=== PATIENT | female | born 1935 | race Caucasian/White ===

== ENCOUNTER 2023-10-10 19:15 | Emergency (ER) | payer MEDICARE ==
--- NOTE | 2023-10-10 19:30 | ED ---
Fall HPI - General Source: patient, family, RN notes reviewed <Evelyn Berry - Last Filed: 10/10/23 19:28> - General Source: patient, family, RN notes reviewed Mode of arrival: ambulatory Limitations: no limitations - History of Present Illness MD Complaint: fall <Marilyn Wynne - Last Filed: 10/11/23 02:08> - General Chief Complaint: Fall Stated Complaint: Fall-Head lac,R wrist injury Time Seen by Provider: 10/10/23 19:28 - History of Present Illness Initial Comments: Patient is an 88 old female presented ER with a chief complaint of a fall. Patient states she was opening her trunk of her car when she fell. Patient hit the back of her head and reports a laceration. Denies LOC, blood thinners, nausea/vomiting/double or blurred vision. Patient also reports reporting right and ankle pain. Patient denies any other injuries. (Evelyn Berry) This is an 88-year-old female who presents to the emergency department for a fall. States that she she was trying to open the trunk of her car, when she lost her balance and fell backwards, hitting the back of her head. She did also brace herself with her left wrist and reports some pain to this area, which has since started to improve. Denies any loss of consciousness and she is not taking any blood thinners. She does have some minor pain along her tailbone, but states that this is related to being on the ground for a few extra minutes and trying to get herself up. Her daughter notes that she seems to have a cut on the back of her head as well, as there is a lot of bleeding coming from this. Patient is not sure when her last tetanus vaccine was. (Marilyn Wynne) - Related Data Allergies Allergy/AdvReac Type Severity Reaction Status Date / Time No Known Allergies Allergy Verified 10/10/23 20:37 Review of Systems ROS Other: All systems not noted in ROS Statement are negative. <Evelyn Berry - Last Filed: 10/10/23 19:28> ROS Other: All systems not noted in ROS Statement are negative. <Marilyn Wynne - Last Filed: 10/11/23 02:08> ROS Statement: Those systems with pertinent positive or pertinent negative responses have been documented in the HPI. General Exam <Evelyn Berry - Last Filed: 10/10/23 19:28> Limitations: no limitations General appearance: alert, in no apparent distress Head exam: Present: other (1 cm laceration over the patient's occiput with minor active bleeding.) Eye exam: Present: normal appearance, PERRL, EOMI. Absent: scleral icterus, conjunctival injection, periorbital swelling Respiratory exam: Present: normal lung sounds bilaterally. Absent: respiratory distress, wheezes, rales, rhonchi, stridor Cardiovascular Exam: Present: regular rate, normal rhythm, normal heart sounds. Absent: systolic murmur, diastolic murmur, rubs, gallop, clicks Extremities exam: Present: other (Ecchymosis over the volar aspect of the left wrist. No tenderness. Full range of motion. 2+ radial pulses.) Neurological exam: Present: alert, oriented X3, CN II-XII intact Psychiatric exam: Present: normal affect, normal mood <Marilyn Wynne - Last Filed: 10/11/23 02:08> - General Exam Comments Initial Comments: Visual Physical Exam Vital signs reviewed General: Well-appearing, nontoxic, no acute distress. Head: Normocephalic, atraumatic 1-2 cm laceration noted on posterior scalp. No active bleeding. Eyes: PERRLA, EOMI ENT: Airway patent Chest: Nonlabored breathing Skin: No visual rash, normal skin tone Neuro: Alert and oriented 3 Musculoskeletal: No gross abnormalities (Evelyn Berry) Course Vital Signs 10/10/23 10/10/23 20:35 23:54 Temperature 97.6 F Pulse Rate 84 78 Respiratory 18 16 Rate Blood Pressure 166/84 160/83 O2 Sat by Pulse 95 94 L Oximetry Procedures - Laceration Laceration #1 Consent Obtained: verbal consent Indication: laceration Site: scalp Size (cm): 1 Description: linear Depth: simple, single layer Type of Sutures: other (Jian) Number of Sutures: 1 <Marilyn Wynne - Last Filed: 10/11/23 02:08> Medical Decision Making <Evelyn Berry - Last Filed: 10/10/23 19:28> - Radiology Data Radiology results: report reviewed, image reviewed <Marilyn Wynne - Last Filed: 10/11/23 02:08> - Medical Decision Making I performed the quick note portion of the exam. Electronically signed by Evelyn Berry PA-C (Evelyn Berry) This is an 88-year-old female who presents to the emergency department for a fall. Was pt. sent in by a medical professional or institution? @ -No Did you speak to anyone other than the patient for history? @ -Her daughter provided the information about the bleeding. Did you review nursing and triage notes? @ -Yes, and I agree, it is accurate with regards to the patient's symptoms. Were old charts reviewed? @ -No Differential Diagnosis? @ -Differential Diagnosis Head Injury: Contusion, hematoma, intracranial hemorrhage, skull fracture, whiplash, concussion, this is not meant to be an all-inclusive list. EKG interpreted by me (3pts min.)? @ -Not obtained X-rays interpreted by me (1pt min.)? @ -X-ray of the left wrist obtained. My interpretation identifies no acute fractures. CT interpreted by me (1pt min.)? @ -Computed tomography scan of the brain and c-spine obtained. My interpretation identifies no evidence of an acute intracranial hemorrhage, skull fracture, or cervical spine fracture. U/S interpreted by me (1pt. min.)? @ -Not obtained What testing was considered but not performed? (CT, X-rays, U/S, labs)? Why? @ -None What meds were considered but not given? Why? @ -None Did you discuss the management of the patient with other professionals? @ -No Did you reconcile home meds? @ -No Was smoking cessation discussed for >3mins.? @ -No Was critical care preformed (if so, how long)? @ -No Were there social determinants of health that impacted care today? How? (Homelessness, low income, unemployed, alcoholism, drug addiction, transportation, low edu. Level, literacy, decrease access to med. care, half-way, rehab)? @ -No Was there de-escalation of care discussed even if they declined? (Discuss DNR or withdrawal of care, Hospice)? @ -No What co-morbidities impacted this encounter? (DM, HTN, Smoking, COPD, CAD, Cancer, CVA, Hep., AIDS, mental health diagnosis, sleep apnea, morbid obesity)? @ -None Was patient admitted / discharged? @ -Discharged. Computed tomography scan of the brain and C-spine obtained revealing no acute process. X-ray of the left wrist obtained revealing widening of the scapholunate interspace which can be seen with with disruption of the scapholunate ligament. There is also a deformity at the distal radius that may represent a sequela of an older, nonacute fracture. Patient maintained full range of motion of the left wrist and denied having any significant pain to this area. She declined a thumb spica splint or any sort bandage. Discussed that she can use [id number] Ken bandages or wear a wrist brace as well. Her head was cleansed with hydrogen peroxide and one staple was used to close the laceration. Tetanus vaccine was updated. Advised ibuprofen and Tylenol as needed for pain relief. She is also instructed to return in 10-14 days for staple removal. She was given information for follow-up with orthopedic hand specialists with regards to the x-ray findings of the left wrist. Undiagnosed new problem with uncertain prognosis? @ -None Drug Therapy requiring intensive monitoring for toxicity (Heparin, Nitro, Insulin, Cardizem)? @ -None Were any procedures done? @ -[place] on the head Diagnosis/symptom? @ -Fall, head injury, left wrist sprain Acute, or Chronic, or Acute on Chronic? @ -Acute Uncomplicated (without systemic symptoms) or Complicated (systemic symptoms)? @ -Uncomplicated Side effects of treatment? @ -None Exacerbation, Progression, or Severe Exacerbation] @ -Not applicable Poses a threat to life or bodily function? @ -No Return precautions reviewed in depth, the patient is instructed to return to the emergency department with any new, worsening, or concerning symptoms. Patient verbalized understanding. This case was discussed in detail with the attending ED physician, Dr. Wood. Presentation, findings, and treatment plan discussed in detail as well. (Marilyn Wynne) Disposition <Evelyn Berry - Last Filed: 10/10/23 19:28> Is patient prescribed a controlled substance at d/c from ED?: No <Marilyn Wynne - Last Filed: 10/11/23 02:08> Clinical Impression: Fall, Scalp laceration, Left wrist sprain Disposition: HOME SELF-CARE Condition: Stable Instructions (If sedation given, give patient instructions): Fall Prevention for Older Adults (ED), Staple Care (ED) Additional Instructions: Return to the emergency department with any new, worsening, or concerning symptoms and in 10-14 days for removal of the staple. Alternate with ibuprofen every 8 hours and Tylenol every 6 hours as needed for pain relief. You can also apply ice to the wrist for 10-15 minutes every 2-3 hours for the first 2-3 days followed by heat afterwards. If needed, you can use an Ken bandage or an [id number] wrist brace. If you continue to have pain in the wrist or hand, contact the hand specialist as listed below for a follow-up appointment. Follow up with your primary care provider in 1-2 days. Referrals: None,Stated [Primary Care Provider] - 1-2 days Dannielle White DO [Doctor of Osteopathic Medicine] - 1-2 days
[2023-10-10 20:43] VITALS: TEMP 97.6
--- NOTE | 2023-10-10 22:22 | XR ---
EXAMINATION TYPE: XR wrist complete LT DATE OF EXAM: 10/10/2023 7:57 PM CLINICAL INDICATION:Female, 88 years old with history of injury; [facility] COMPARISON: None. TECHNIQUE: 4 views of the left wrist. FINDINGS: Generalized decrease in bone mineralization. There is deformity of the distal radius without discrete fracture lucency seen, this may be reflective of a remote injury. There is mild positive ulnar varia nce and moderate degenerative change at the distal radioulnar joint. Mild degenerative changes throug hout the carpal rows. There is widening of the scapholunate interspace, integrity of the scapholunate ligament is in question. There is moderate degenerative change of the basal joint of the thumb with some lateral subluxation of the base of the first metacarpal. Soft tissues are grossly unremarkable. IMPRESSION: 1. Generalized osteopenia and degenerative changes. 2. Widening of the scapholunate interspace can be seen with disruption of the scapholunate ligament. 3. Deformity of the distal radius may represent sequela of nonacute fracture. Follow-up as clinicall y warranted.
--- NOTE | 2023-10-10 22:37 | CT ---
EXAMINATION TYPE: CT brain cspine wo con CT DLP: 1271.8 mGycm, Automated exposure control for dose reduction was used. DATE OF EXAM: 10/10/2023 8:07 PM COMPARISON: None. CLINICAL INDICATION:Female, 88 years old with history of pain; Fall, posterior head laceration TECHNIQUE: Brain: Multiple axial CT images of the brain were obtained without IV contrast. Cspine: Axial CT images from the skull base to the inferior aspect of T2 we obtained without intraven ous contrast. Coronal and sagittal reformatted images were also reviewed. FINDINGS: Brain: Extra-axial spaces: No abnormal extra-axial fluid collections. Ventricular system: Appear dilated in proportion to the degree of cerebral atrophy. Cerebral parenchyma: No increased attenuation to suggest acute intraparenchymal hemorrhage. The gra y-white matter interface appears maintained. Moderate generalized brain atrophy. Scattered hypoatte nuating areas are seen within the cerebral white matter, nonspecific but most often seen with chronic microvascular ischemic changes; mild in degree. Cerebellum: No acute abnormality. Mass effect: No evidence of mass effect or midline shift. Intracranial vasculature: Atherosclerotic calcifications of the larger arteries near the skull base. Soft tissues: Moderate sized subgaleal scalp hematoma posteriorly near the midline overlying the marah etal lobes. Visualized orbits: Orbital contents appear grossly intact. Bilateral aphakia Calvarium/osseous structures: No evidence of calvarial fracture. Paranasal sinuses and mastoid air cells: Mild scattered paranasal sinus disease. Mastoid air cells a ppear hypopneumatized. MRI is more sensitive for detecting acute processes such as infarct, and may be considered if clinica lly warranted. Cervical spine: Fracture: None seen. Osseous structures, spinal canal/neural foramina: Generalized osteopenia. 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 There is mild to moderate multilevel degenerative disc disease, m ost pronounced at the C3-C4 level. Generally mild facet arthrosis throughout. At C2-C3, there is no s ignificant spinal canal or neural foraminal stenosis seen. At C3-C4, there is moderate canal and bila teral neural foraminal stenosis primarily due to disc endplate osteophytes as well as trace retrolist hesis C3 on C4. At C4-C5, there is moderate right and mild left neural foraminal stenosis. Mild/moder ate canal stenosis. At C5-C6, there is mild to moderate canal stenosis and moderate left and mild to moderate right neural foraminal stenosis. At C6-C7, there is minimal canal and mild right neural fora bob narrowing. At C7-T1, there is no significant spinal canal or neural foraminal stenosis seen. Vertebral alignment: No traumatic malalignment. Preserved normal cervical lordosis. Mild retrolisthes is C3 on C4. Neck soft tissues: No acute finding.. Calcifications noted involving the cervical carotid arteries mo stly in the bifurcation regions, and along aortic arch. Other: Lung apices show no acute infiltrate or pneumothorax. Mild scarring/senescent changes. IMPRESSION: CT head: No CT evidence of an acute intracranial abnormality. Atrophy and chronic microvascular ischemic white matter changes. CT cervical spine: No evidence of cervical spine fracture or traumatic malalignment. Mild/moderate cervical spondylosis, as described.
[2023-10-10] MEDS ORDERED: DIPH,PERTUS(ACELL)TETVAC-LF 0.5 ML VIAL IM ONE (23:00)
[2023-10-10] MEDS ORDERED: ACETAMINOPHEN TAB 325 MG TAB PO STA (23:17)
[2023-10-10] MEDS ORDERED: IBUPROFEN 600 MG TAB PO STA (23:17)
[2023-10-11 00:34] VITALS: BP 160/83; PULSE 78; RESP 16
== END 2023-10-11 00:05 | disposition home or self-care (01) ==
LOC: EC 19:15
DX: S01.01XA Laceration without foreign body of scalp, initial encounter (principal); S63.502A Unspecified sprain of left wrist, initial encounter; Z23 Encounter for immunization; W01.110A Fall on same level from slipping, tripping and stumbling with subsequent striking against sharp glass, initial encounter
CPT/HCPCS: 12001; 70450; 72125; 90471; 90715; 99284

== ENCOUNTER 2025-01-15 17:44 | Inpatient (IN) | payer MEDICARE ==
[2025-01-15 18:30] LABS: Basophils # (A) 0.1 k/uL (0-0.2); Basophils % (A) 1 %; Eosinophils % (A) 1 %; HCT 40.2 % (34.0-46.0); HGB 12.8 gm/dL (11.4-16.0); Lymphocytes # (A) 0.8 k/uL (1.0-4.8); Lymphocytes % (A) 12 %; MCHC 31.7 g/dL (31.0-37.0); MCV 88.3 fL (80.0-100.0); Mean Platelet Volume 7.2; Monocytes # (A) 0.4 k/uL (0-1.0); Monocytes % (A) 6 %; Neutrophils # (A) 5.7 k/uL (1.3-7.7); Neutrophils % (A) 80 %; Platelet Count 280 k/uL (150-450); RBC 4.55 m/uL (3.80-5.40); RDW 13.8 % (11.5-15.5); WBC 7.1 k/uL (3.8-10.6)
[2025-01-15 18:45] LABS: ALT 15 U/L (4-34); AST 30 U/L (14-36); African American GFR (CKD) >90 (>60 ml/min/1.73 sqM); Albumin 3.8 g/dL (3.5-5.0); Alkaline Phosphatase 70 U/L (38-126); Anion Gap 7 mmol/L; Blood Urea Nitrogen 29 mg/dL (7-17); Calcium 8.6 mg/dL (8.4-10.2); Carbon Dioxide 31 mmol/L (22-30); Chloride 101 mmol/L (98-107); Glucose 133 mg/dL (74-99); Non-African American GFR(CKD) 80 (>60 ml/min/1.73 sqM); Potassium 3.5 mmol/L (3.5-5.1); Sodium 139 mmol/L (137-145); Total Bilirubin 1.4 mg/dL (0.2-1.3); Total Protein 6.7 g/dL (6.3-8.2)
[2025-01-15 18:49] LABS: NT-Pro-B-Type Natriuretic Pept 637 pg/mL
--- NOTE | 2025-01-15 18:55 | XR ---
EXAMINATION TYPE: XR chest 2V DATE OF EXAM: 01/15/2025 6:49 PM COMPARISON: None TECHNIQUE: XR chest 2V Frontal and lateral views of the chest. CLINICAL INDICATION:Female, 89 years old with history of difficulty breathing; FINDINGS: Lungs/Pleura: There is no evidence of pleural effusion, focal consolidation, or pneumothorax. Elevat ion left hemidiaphragm with gas-filled colon beneath. Pulmonary vascularity: Unremarkable. Heart/mediastinum: Cardiomediastinal silhouette is enlarged. Musculoskeletal: No acute osseous pathology. IMPRESSION: 1. No acute cardiopulmonary disease/process. 2. Elevated left hemidiaphragm with gas-filled colon beneath. [facility], , 01/15/2025 6:52 PM
[2025-01-15 19:06] LABS: Influenza A Detected (Not Detectd); Influenza B Not Detected (Not Detectd); RSV Not Detected (Not Detectd)
[2025-01-15] MEDS ORDERED: NALOXONE 0.4 MG/ML 1 ML VIAL IV PRN (19:55)
--- NOTE | 2025-01-15 19:55 | ED ---
SOB HPI - General Chief Complaint: Shortness of Breath Stated Complaint: TRINITY Time Seen by Provider: 01/15/25 17:55 Source: patient Mode of arrival: EMS Limitations: no limitations - History of Present Illness Initial Comments: 89-year-old female with no reported past medical history who presents emergency department from urgent care. Patient went in there because she has reported a cough for the past 5 to 6 days. They found the patient to be 80% on room air. Denies history of asthma or COPD. Does not wear oxygen at home. She have a lo w-grade temp. They placed patient on oxygen and called EMS to transfer her to the hospital. Patient denies a productive cough. No chest pain. No history of heart failure. Denies any sick contacts. No lower extremity edema. No calf pain or swelling. Denies any nausea or vomiting. No abdominal pain. No changes in her bowel or bladder habits. No other alleviating, precipitating or modifying factors - Related Data Previous Rx's Medication Instructions Recorded Acetaminophen Tab [Tylenol] 650 mg PO Q6HR PRN tab 01/17/25 Albuterol Inhaler [Ventolin Hfa 2 puff INHALATION Q6H PRN #1 each 01/17/25 Inhaler] Oseltamivir [Tamiflu] 30 mg PO BID #6 cap 01/17/25 Pantoprazole [Protonix] 40 mg PO AC-BRKFST #30 tab 01/17/25 predniSONE [Deltasone] 40 mg PO DAILY #8 tab 01/17/25 Allergies Allergy/AdvReac Type Severity Reaction Status Date / Time No Known Allergies Allergy Verified 01/15/25 19:40 Review of Systems ROS Statement: Those systems with pertinent positive or pertinent negative responses have been documented in the HPI. ROS Other: All systems not noted in ROS Statement are negative. Past Medical History Past Medical History: No Reported History History of Any Multi-Drug Resistant Organisms: None Reported Past Surgical History: No Surgical Hx Reported Past Psychological History: No Psychological Hx Reported Smoking Status: Never smoker Past Alcohol Use History: None Reported Past Drug Use History: None Reported General Exam Limitations: no limitations General appearance: alert, in no apparent distress Head exam: Present: atraumatic, normocephalic, normal inspection Eye exam: Present: normal appearance, PERRL, EOMI. Absent: scleral icterus, conjunctival injection, periorbital swelling ENT exam: Present: normal exam, mucous membranes moist Neck exam: Present: normal inspection. Absent: tenderness, meningismus, lymphadenopathy Respiratory exam: Present: rales, other (Conversational dyspnea). Absent: respiratory distress, wheezes, rhonchi, stridor Cardiovascular Exam: Present: regular rate, normal rhythm, normal heart sounds. Absent: systolic murmur, diastolic murmur, rubs, gallop, clicks GI/Abdominal exam: Present: soft, normal bowel sounds. Absent: distended, tenderness, guarding, rebound, rigid Extremities exam: Present: normal inspection, full ROM, normal capillary refill. Absent: tenderness, pedal edema, joint swelling, calf tenderness Back exam: Present: normal inspection Neurological exam: Present: alert, oriented X3, CN II-XII intact Psychiatric exam: Present: normal affect, normal mood Skin exam: Present: warm, dry, intact, normal color. Absent: rash Course Vital Signs 01/15/25 01/15/25 01/15/25 17:49 17:57 18:00 Temperature 99.5 F Pulse Rate 85 Respiratory 22 24 Rate Blood Pressure 129/70 O2 Sat by Pulse 80 L 93 L Oximetry 01/15/25 01/15/25 01/15/25 18:40 20:17 20:25 Temperature Pulse Rate 79 78 75 Respiratory 20 22 Rate Blood Pressure 117/72 118/74 O2 Sat by Pulse 93 L 92 L Oximetry 01/15/25 01/15/25 20:34 20:48 Temperature Pulse Rate 78 80 Respiratory 17 Rate Blood Pressure O2 Sat by Pulse 93 L Oximetry Medical Decision Making - Medical Decision Making Was pt. sent in by a medical professional or institution (DEVIKA Hawkins, ASSEMBLER CAMPER, urgent care, hospital, or [facility]...) When possible be specific @ -Patient sent in from urgent care Did you speak to anyone other than the patient for history (EMS, parent, family, police, friend...)? What history was obtained from this source @ -Spoke with EMS and daughter for history Did you review nursing and triage notes (agree or disagree)? Why? @ -I reviewed and agree with nursing and triage notes Were old charts reviewed (outside hosp., previous admission, EMS record, old EKG, old radiological studies, urgent care reports/EKG's, [facility] records)? Report findings @ -I reviewed the urgent care note Differential Diagnosis (chest pain, altered mental status, abdominal pain women, abdominal pain men, vaginal bleeding, weakness, fever, dyspnea, syncope, headache, dizziness, GI bleed, back pain, seizure, CVA, palpatations, mental health, musculoskeletal)? @ -Differential Dyspnea: Coronary syndrome, arrhythmia, tamponade, asthma, COPD, pulmonary embolism, pneumonia, pneumothorax, pulmonary effusion, anaphylaxis, diabetic ketoacidosis, flailed chest, pulmonary contusion, diaphragmatic rupture, anemia, neuromuscular, this is not meant to be an all-inclusive list. EKG interpreted by me (3pts min.). @ -yes and demonstrates sinus rhythm with a rate of 78. DC interval 155. QRS 102. QTc of 398. No acute ST segment elevations or depression X-rays interpreted by me (1pt min.). @ -Yes and demonstrates no acute process CT interpreted by me (1pt min.). @ -None done U/S interpreted by me (1pt. min.). @ -None done What testing was considered but not performed or refused? (CT, X-rays, U/S, labs)? Why? @ -None What meds were considered but not given or refused? Why? @ -None Did you discuss the management of the patient with other professionals (professionals i.e. , PA, ASSEMBLER CAMPER, lab, RT, psych nurse, manager social responsibility, box sorter, teacher, chief growth officer, cyanide case hardener)? Give summary @ -I spoke with Dr. Ramirez for history Was smoking cessation discussed for >3mins.? @ -No Was critical care preformed (if so, how long)? @ -No Were there social determinants of health that impacted care today? How? (Homelessness, low income, unemployed, alcoholism, drug addiction, transportation, low edu. Level, literacy, decrease access to med. care, half-way, rehab)? @ -No Was there de-escalation of care discussed even if they declined (Discuss DNR or withdrawal of care, Hospice)? DNR status @ -No What co-morbidities impacted this encounter? (DM, HTN, Smoking, COPD, CAD, Cancer, CVA, ARF, Chemo, Hep., AIDS, mental health diagnosis, sleep apnea, morbid obesity)? @ -None Was patient admitted / discharged? Hospital course, mention meds given and route, prescriptions, significant lab abnormalities, going to OR and other pertinent info. @ -Upon arrival patient seen and in bed 6. Thorough history and physical exam was performed. We did the oxygen off the patient and she immediately desaturates to 82%. She is placed back on oxygen. IV was established. Laboratory conducted. Viral swab was performed. Chest x-ray demonstrates no acute process. Patient was positive for influenza. Results were discussed with patient. Due to her profound hypoxia I do feel the patient needs to be admitted. Breathing treatments, Solu-Medrol and Tamiflu were ordered. I spoke with Dr. Ramirez for the admission Undiagnosed new problem with uncertain prognosis? @ -No Drug Therapy requiring intensive monitoring for toxicity (Heparin, Nitro, Insulin, Cardizem)? @ -No Were any procedures done? @ -No Diagnosis/symptom? @ -Acute hypoxic respiratory failure, acute influenza A Acute, or Chronic, or Acute on Chronic? @ -Acute Uncomplicated (without systemic symptoms) or Complicated (systemic symptoms)? @ -Complicated Side effects of treatment? @ -No Exacerbation, Progression, or Severe Exacerbation? @ -No Poses a threat to life or bodily function? How? (Chest pain, [place], [place], pneumonia, PE, COPD, DKA, ARF, appy, cholecystitis, CVA, Diverticulitis, Homicidal, Suicidal, threat to staff... and all critical care pts) @ -Yes this patient is hypoxic - Lab Data Result diagrams: 01/16/25 05:12 01/16/25 05:12 Lab Results 01/15/25 01/15/25 01/15/25 Range/Units 18:15 18:15 18:15 WBC 7.1 (3.8-10.6) k/uL RBC 4.55 (3.80-5.40) m/uL Hgb 12.8 (11.4-16.0) gm/dL Hct 40.2 (34.0-46.0) % MCV 88.3 (80.0-100.0) fL MCH 28.0 (25.0-35.0) pg MCHC 31.7 (31.0-37.0) g/dL RDW 13.8 (11.5-15.5) % Plt Count 280 (150-450) k/uL MPV 7.2 Neutrophils % 80 % Lymphocytes % 12 % Monocytes % 6 % Eosinophils % 1 % Basophils % 1 % Neutrophils # 5.7 (1.3-7.7) k/uL Lymphocytes # 0.8 L (1.0-4.8) k/uL Monocytes # 0.4 (0-1.0) k/uL Eosinophils # 0.0 (0-0.7) k/uL Basophils # 0.1 (0-0.2) k/uL Sodium 139 (137-145) mmol/L Potassium 3.5 (3.5-5.1) mmol/L Chloride 101 (98-107) mmol/L Carbon Dioxide 31 H (22-30) mmol/L Anion Gap 7 mmol/L BUN 29 H (7-17) mg/dL Creatinine 0.65 (0.52-1.04) mg/dL Est GFR (CKD-EPI)AfAm >90 (>60 ml/min/1.73 sqM) Est GFR (CKD-EPI)NonAf 80 (>60 ml/min/1.73 sqM) Glucose 133 H (74-99) mg/dL Plasma Lactic Acid Jeferson 1.2 (0.7-2.0) mmol/L Calcium 8.6 (8.4-10.2) mg/dL Total Bilirubin 1.4 H (0.2-1.3) mg/dL AST 30 (14-36) U/L ALT 15 (4-34) U/L Alkaline Phosphatase 70 (38-126) U/L Troponin I (0.000-0.034) ng/mL NT-Pro-B Natriuret Pep 637 pg/mL Total Protein 6.7 (6.3-8.2) g/dL Albumin 3.8 (3.5-5.0) g/dL Influenza Type A (PCR) (Not Detectd) Influenza Type B (PCR) (Not Detectd) RSV (PCR) (Not Detectd) SARS-CoV-2 (PCR) (Not Detectd) 01/15/25 01/15/25 Range/Units 18:15 18:15 WBC (3.8-10.6) k/uL RBC (3.80-5.40) m/uL Hgb (11.4-16.0) gm/dL Hct (34.0-46.0) % MCV (80.0-100.0) fL MCH (25.0-35.0) pg MCHC (31.0-37.0) g/dL RDW (11.5-15.5) % Plt Count (150-450) k/uL MPV Neutrophils % % Lymphocytes % % Monocytes % % Eosinophils % % Basophils % % Neutrophils # (1.3-7.7) k/uL Lymphocytes # (1.0-4.8) k/uL Monocytes # (0-1.0) k/uL Eosinophils # (0-0.7) k/uL Basophils # (0-0.2) k/uL Sodium (137-145) mmol/L Potassium (3.5-5.1) mmol/L Chloride (98-107) mmol/L Carbon Dioxide (22-30) mmol/L Anion Gap mmol/L BUN (7-17) mg/dL Creatinine (0.52-1.04) mg/dL Est GFR (CKD-EPI)AfAm (>60 ml/min/1.73 sqM) Est GFR (CKD-EPI)NonAf (>60 ml/min/1.73 sqM) Glucose (74-99) mg/dL Plasma Lactic Acid Jeferson (0.7-2.0) mmol/L Calcium (8.4-10.2) mg/dL Total Bilirubin (0.2-1.3) mg/dL AST (14-36) U/L ALT (4-34) U/L Alkaline Phosphatase (38-126) U/L Troponin I 0.029 (0.000-0.034) ng/mL NT-Pro-B Natriuret Pep pg/mL Total Protein (6.3-8.2) g/dL Albumin (3.5-5.0) g/dL Influenza Type A (PCR) Detected A (Not Detectd) Influenza Type B (PCR) Not Detected (Not Detectd) RSV (PCR) Not Detected (Not Detectd) SARS-CoV-2 (PCR) Not Detected (Not Detectd) Disposition Clinical Impression: Hypoxia, Influenza A Disposition: ADMITTED IP TO THIS HOSP Condition: Stable Is patient prescribed a controlled substance at d/c from ED?: No Time of Disposition: 19:55 Decision to Admit Reason: Admit from EC Decision Date: 01/15/25 Decision Time: 19:55
[2025-01-15] MEDS: OSELTAMIVIR 75 MG CAP PO SCH (20:05)
[2025-01-15] MEDS: methylPREDNISolone SOD SUCCI 125 MG/2 ML VIAL IV STA (20:10)
[2025-01-15] MEDS: IPRATROPIUM-ALBUTEROL 3 ML NEB INHALATION SCH (20:24)
[2025-01-15] MEDS: IPRATROPIUM-ALBUTEROL 3 ML NEB INHALATION STA (20:25)
[2025-01-15] MEDS ORDERED: IPRATROPIUM-ALBUTEROL 3 ML NEB INHALATION PRN (20:55)
--- NOTE | 2025-01-15 21:34 | P.HPIM ---
History of Present Illness H&P Date: 01/15/25 Chief Complaint: dyspnea Patient is a 89-year-old female with no reported medical history presenting to the ED with shortness of breath. Patient went to urgent care due to nonproductive cough for the past 5 to 6 days. They ultimately found patient oxygen saturation to be 80% on room air. She endorses a mild headache. Denies any sick contacts. Denies any history of as thma or COPD. Denies any tobacco, alcohol, drug history. She denies any fever, chills, chest pain, shortness of breath, nausea, vomiting, diarrhea, abdominal pain, urinary symptoms. CXR displaying no acute cardiopulmonary process T 99.5 F, [place] 85, RR 22, BP 129/70, O2 saturation 80% on room air Cepheid 4-plex detecting Influenza A detected Review of systems: Pertinent positives and negatives as discussed in HPI, a complete review of systems was performed and all other systems are negative. Physical examination: Vital signs reviewed General: Mild distress, appears at stated age Derm: no unusual rashes/lesions, warm Head: atraumatic, normocephalic, symmetric Eyes: EOMI, anicteric sclera ENT: Nose and ears atraumatic Mouth: no lip lesion, mucus membranes moist Cardiovascular: S1S2 reg, no murmur, positive dorsalis pedis pulse bilateral, no edema Lungs: Bilateral rhonchi, rales, no accessory muscle use Abdominal: soft, nontender to palpation, no guarding Ext: muscle strength 5 out of 5 in all 4 extremities grossly, no gross muscle atrophy Neuro: CN II-XI grossly intact, no gross focal neuro deficits Psych: Alert, oriented to person, place, and time Assessment/Plan: Patient is a 89-year-old female with no reported medical history presenting to the ED with shortness of breath. ED documentation reviewed. Discussed with the patient. The patient is admitted with an anticipated greater than than 2 midnight stay for evaluation of acute hypoxic respiratory failure secondary to influenza A virus. #. Acute hypoxic respiratory failure secondary to Influenza A #. Metabolic alkalosis SIRS 1 with increased RR CXR displaying no acute cardiopulmonary process S/p IV Solu-Medrol 125 mg given by ED Patient is never smoker, denies asthma/COPD corticosteroids currently not indicated for this patient Currently on 4 L nasal cannula Tamiflu 30 mg PO BID Duoneb around the clock and prn Encourage oral hydration Pulmonology consulted DVT prophylaxis: Lovenox 40 sq daily CODE STATUS: FULL CODE Anticipated discharge place: pending clinical course Doug Arboleda MD PGY-1 IM Dictation was produced using [employer] dictation software. please excuse any grammatical, word or spelling errors. I have seen and evaluated the patient today. I Discussed the case with the resident and agree with the resident's findings I edited the assessment and plan as necessary as documented in the resident's note. Past Medical History Past Medical History: No Reported History History of Any Multi-Drug Resistant Organisms: None Reported Past Surgical History: No Surgical Hx Reported Past Psychological History: No Psychological Hx Reported Smoking Status: Never smoker Past Alcohol Use History: None Reported Past Drug Use History: None Reported Medications and Allergies Home Medications Medication Instructions Recorded Confirmed Type No Known Home Medications 01/15/25 01/15/25 History Allergies Allergy/AdvReac Type Severity Reaction Status Date / Time No Known Allergies Allergy Verified 01/15/25 19:40 Physical Exam Vitals: Vital Signs Temp Pulse Resp BP Pulse Ox 01/15/25 18:40 79 20 117/72 93 L 01/15/25 18:00 93 L 01/15/25 17:57 24 01/15/25 17:49 99.5 F 85 22 129/70 80 L Intake and Output 01/15/25 01/15/25 01/15/25 06:59 14:59 22:59 Other: Weight 52.39 kg Results CBC & Chem 7: 01/15/25 18:15 01/15/25 18:15 Labs: Abnormal Lab Results - Last 24 Hours (Table) 01/15/25 01/15/25 01/15/25 Range/Units 18:15 18:15 18:15 Lymphocytes # 0.8 L (1.0-4.8) k/uL Carbon Dioxide 31 H (22-30) mmol/L BUN 29 H (7-17) mg/dL Glucose 133 H (74-99) mg/dL Total Bilirubin 1.4 H (0.2-1.3) mg/dL Influenza Type A (PCR) Detected A (Not Detectd)
[2025-01-15] MEDS: ACETAMINOPHEN TAB 325 MG TAB PO PRN (21:50)
[2025-01-16] MEDS: OSELTAMIVIR 30 MG CAP PO SCH (07:51)
[2025-01-16] MEDS: ENOXAPARIN 40 MG/0.4 ML SYRINGE SQ SCH (07:51)
[2025-01-16] MEDS ORDERED: methylPREDNISolone SOD SUCCI 40 MG/ML 1 ML VIAL IV SCH (08:00)
[2025-01-16 08:30] LABS: Calcium 8.8 mg/dL (8.7-10.3); Carbon Dioxide 28.7 mmol/L (21.6-31.8); Chloride 102 mmol/L (96-109); Glucose 147 mg/dL (70-110); Magnesium 2.3 mg/dL (1.5-2.4); Potassium 3.9 mmol/L (3.5-5.5); Sodium 143 mmol/L (135-145)
[2025-01-16 08:48] LABS: HCT 41.5 % (37.2-46.3); HGB 13.1 g/dL (12.0-15.0); MCHC 31.6 g/dL (32.0-37.0); MCV 91.8 FL (80.0-97.0); Mean Platelet Volume 9.8 FL (9.5-12.2); NRBC Per 100 WBC 0 X 10*3/uL (0.00-0.01); Platelet Count 254 X 10*3/uL (140-440); RBC 4.52 X 10*6/uL (4.10-5.20); RDW 13.8 % (11.5-14.5); WBC 4.85 X 10*3/uL (4.50-10.00)
[2025-01-16] MEDS: IPRATROPIUM-ALBUTEROL 3 ML NEB INHALATION PRN (09:55)
[2025-01-16 10:47] LABS: Basophils # (A) 0.01 X 10*3/uL (0.00-0.10); Basophils % (A) 0.2 %; Eosinophils # (A) 0 X 10*3/uL (0.04-0.35); Eosinophils % (A) 0 %; Lymphocytes # (A) 0.61 X 10*3/uL (0.90-5.00); Lymphocytes % (A) 12.6 %; Monocytes # (A) 0.05 X 10*3/uL (0.20-1.00); Neutrophils # (A) 4.17 X 10*3/uL (1.80-7.70); RBC Morphology Normal (Normal)
[2025-01-16] MEDS: methylPREDNISolone SOD SUCCI 40 MG/ML 1 ML VIAL IV SCH (12:19)
--- NOTE | 2025-01-16 13:18 | P.PN ---
Subjective Progress Note Date: 01/16/25 89-year-old female with no reported medical history presenting to the ED with shortness of breath. Patient went to urgent care due to nonproductive cough for the past 5 to 6 days. They ultimately found patient oxygen saturation to be 80% on room air. She endorses a mild headache. Denies any sick contacts. Denies any history of asthma or COPD. Denies any tobacco, alcohol, drug history. In the ED she underwent extensive evaluation. T 99.5 F, [place] 85, RR 22, BP 129/70, O2 saturation 80% on room air. CXR displaying no acute cardiopulmonary process. Cepheid 4-plex detecting Influenza A detected. Lactic acid 1.2. CBC, CMP significant for bicarb 31, BUN 29, glu 133, T. Bili 1.4. BNP 637. Trop 0.029. EKG NSR. Started on Tamiflu and admitted for further workup and management. 01/16 Patient was seen and examined. Feeling better. 89% on RA. CBC, CMP significant for AG 12.3, BUN/Cr 45, glu 147. General: non toxic, no distress, appears at stated age Derm: warm, dry Head: atraumatic, normocephalic, symmetric Mouth: no lip lesion, mucus membranes moist Cardiovascular: S1S2 reg, no murmur Lungs: Expiratory wheezing bilaterally, no rales , no accessory muscle use Ext: no gross muscle atrophy, no edema, no contractures Neuro: no focal neuro deficits Psych: Alert and oriented x 3 Based on my assessment of this patient, this patient meets a high complexity level of care. Acute hypoxic respiratory failure secondary to Flu A: Tamiflu 30 mg PO BID. DuoNeb Q6H scheduled. Supplemental O2 to maintain O2 sat > 92%. Telemetry monitoring. Tylenol 650 mg PO Q6H PRN fever. Obtain D-Dimer. Pulmonary consult. Prerenal azotemia with Hyperbilirubinemia: Encourage hydration by mouth. CODE STATUS: FULL CODE. DVT Prophylaxis: Lovenox SQ. GI Prophylaxis: Protonix PO. Designated medical POA if patient is not able to make medical decisions for themselves: Daughter I have reviewed the following consultant dietitian notes: I have reviewed the results of the following tests: CBC, CMP. I have ordered the following tests: D-Dimer. I have discussed the care of this patient with the following independent historian: RN, Daughter I have independently interpreted the following test below: I have discussed the management of this patient with the following physician: Objective - Vital Signs Vital signs: Vital Signs Temp 97.9 F 01/16/25 07:23 Pulse 82 01/16/25 10:11 Resp 18 01/16/25 07:23 BP 121/79 01/16/25 07:23 Pulse Ox 95 01/16/25 10:01 FiO2 Intake & Output 01/15/25 01/16/25 01/16/25 18:59 06:59 18:59 Weight 52.39 kg 52.39 kg Other: Voiding Method Toilet Toilet # Voids 1 1 - Labs CBC & Chem 7: 01/16/25 05:12 01/16/25 05:12 Labs: Abnormal Lab Results - Last 24 Hours (Table) 01/15/25 01/15/25 01/15/25 Range/Units 18:15 18:15 18:15 MCHC (32.0-37.0) g/dL Lymphocytes # 0.8 L (1.0-4.8) k/uL Monocytes # (0.20-1.00) X 10*3/uL Eosinophils # (0.04-0.35) X 10*3/uL Carbon Dioxide 31 H (22-30) mmol/L Anion Gap (4.00-12.00) mmol/L BUN 29 H (7-17) mg/dL BUN/Creatinine Ratio (12.00-20.00) Ratio Glucose 133 H (74-99) mg/dL Total Bilirubin 1.4 H (0.2-1.3) mg/dL Influenza Type A (PCR) Detected A (Not Detectd) 01/16/25 01/16/25 Range/Units 05:12 05:12 MCHC 31.6 L (32.0-37.0) g/dL Lymphocytes # 0.61 L (1.0-4.8) k/uL Monocytes # 0.05 L (0.20-1.00) X 10*3/uL Eosinophils # 0 L (0.04-0.35) X 10*3/uL Carbon Dioxide (22-30) mmol/L Anion Gap 12.30 H (4.00-12.00) mmol/L BUN (7-17) mg/dL BUN/Creatinine Ratio 45.00 H (12.00-20.00) Ratio Glucose 147 H (74-99) mg/dL Total Bilirubin (0.2-1.3) mg/dL Influenza Type A (PCR) (Not Detectd)
[2025-01-16] MEDS: IPRATROPIUM-ALBUTEROL 3 ML NEB INHALATION SCH (13:43)
[2025-01-16 14:32] VITALS: BMI 18.6
--- NOTE | 2025-01-16 16:52 | P.CNPUL ---
History of Present Illness Consult date: 01/16/25 Reason for consult: hypoxemia History of present illness: This is a pleasant 89-year-old female patient was been having increased cough and congestion for approximately 5 days. She has not received her influenza vaccine for the current year. No reported fever or chills. No significant shortness of breath. No nausea vomiting or diarrhea or abdominal pain. No altered mentation. The [facility] with a pulse ox of around 80% on room air oxygen. She was placed on oxygen and she is currently on 2 L nasal cannula. She also tested positive for influenza A. Based on that, the patient was hospitalized. The patient is extremely hard of hearing. She does not wear any hearing aids. Information was obtained from family members. No history of any chronic lung di sease. No chest pain. No use of home oxygen. She is a lifetime non-smoker. She is hemodynamically stable with a white cell count of 4.8, hemoglobin 13.1 and a platelet count of 254. Sodium is at 143, BUN 27 creatinine of 0.6. Viral screen was positive for influenza A infection. proBNP level was 637. Troponin level was at 0.0 29. Total protein and albumin levels were essentially within normal limits. Calcium level is at 8.8. Lactic acid level is at 1.2. Patient is currently on Tamiflu 30 mg p.o. twice a day. She was started on IV Solu- Medrol. She is on DuoNeb and MRI tubes [id number]. Oxygenation remained stable and the patient continues to desaturate on room air oxygen. Chest x-ray was also reviewed and it shows no acute airspace 0 consolidation. The patient has chronic elevation of left hemidiaphragm with gas-filled bowel under the left hemidiaphragm. Otherwise, no airspace disease or consolidation. No other significant abnormalities noted. Review of Systems Constitutional: Reports fatigue, Reports weakness Eyes: denies as per HPI, denies blurred vision, denies bulging eye, denies decreased vision, denies diplopia, denies discharge, denies dry eye, denies irritation, denies itching, denies pain, denies photophobia, denies loss of peripheral vision, denies loss of vision, denies tunnel vision/blind spots Ears: bilateral: decreased hearing, deny: ear discharge, earache, tinnitus Ears, nose, mouth and throat: Reports as per HPI Breasts: absent: as per HPI, change in shape, gynecomastia, masses, nipple discharge, pain, skin changes, swelling Breasts: Reports as per HPI Cardiovascular: Reports as per HPI Respiratory: Reports congestion, Reports cough Gastrointestinal: Reports as per HPI Genitourinary: Reports as per HPI Menstruation: Reports as per HPI Musculoskeletal: Reports as per HPI Musculoskeletal: absent: ankle pain, ankle stiffness, ankle swelling, as per HPI, elbow pain, elbow stiffness, elbow swelling, foot pain, foot stiffness, foot swelling, hand pain, hand stiffness, hand swelling, hip pain, hip stiffness, hip swelling, knee pain, knee stiffness, knee swelling, shoulder pain, shoulder stiffness, shoulder swelling, wrist pain, wrist stiffness, wrist swelling Integumentary: Reports as per HPI Neurological: Reports as per HPI Psychiatric: Reports as per HPI Endocrine: Reports as per HPI Hematologic/Lymphatic: Reports as per HPI Allergic/Immunologic: Reports as per HPI Past Medical History Past Medical History: No Reported History History of Any Multi-Drug Resistant Organisms: None Reported Past Surgical History: No Surgical Hx Reported Past Anesthesia/Blood Transfusion Reactions: No Reported Reaction Past Psychological History: No Psychological Hx Reported Smoking Status: Never smoker Past Alcohol Use History: None Reported Past Drug Use History: None Reported Medications and Allergies Home Medications Medication Instructions Recorded Confirmed Type No Known Home Medications 01/15/25 01/15/25 History Allergies Allergy/AdvReac Type Severity Reaction Status Date / Time No Known Allergies Allergy Verified 01/15/25 19:40 Physical Exam Vitals: Vital Signs Temp Pulse Pulse Resp BP BP Pulse Ox 01/16/25 10:11 82 01/16/25 10:01 80 95 01/16/25 09:58 71 95 01/16/25 07:23 97.9 F 75 18 121/79 96 01/16/25 01:06 97.6 F 67 16 109/61 95 01/15/25 21:28 98.2 F 83 18 148/75 94 L 01/15/25 20:48 80 17 93 L 01/15/25 20:34 78 01/15/25 20:25 75 01/15/25 20:17 78 22 118/74 92 L 01/15/25 18:40 79 20 117/72 93 L 01/15/25 18:00 93 L 01/15/25 17:57 24 01/15/25 17:49 99.5 F 85 22 129/70 80 L Intake and Output 01/15/25 01/16/25 01/16/25 22:59 06:59 14:59 Other: Voiding Method Toilet Toilet # Voids 1 1 Weight 52.39 kg The patient appeared well nourished and normally developed. Vital signs as documented. BMI is 18.6, currently on 2 L of oxygen by nasal cannula Head exam is unremarkable. No scleral icterus or corneal arcus noted. Neck is without jugular venous distension, thyromegaly, or carotid bruits. Carotid upstrokes are brisk bilaterally. Lungs are clear to auscultation and percussion. Scattered rhonchi heard throughout the lung phelps bilaterally Cardiac exam reveals the PMI to be normally sized and situated. Rhythm is regular. First and second heart sounds normal. No murmurs, rubs or gallops. Abdominal exam reveals normal bowel sounds, no masses, no organomegaly and no a ortic enlargement. Extremities are nonedematous and both femoral and pedal pulses are normal. Examination of the skin revealed no evidence of significant rashes, suspicious appearing nevi or other concerning lesions. Neurologically, the patient is awake and alert and the patient does not have any focal neurological deficit. Cranial nerves are essentially intact. Results - Laboratory Findings CBC and BMP: 01/16/25 05:12 01/16/25 05:12 Abnormal lab findings: Abnormal Labs 01/15/25 01/15/25 01/15/25 18:15 18:15 18:15 MCHC Lymphocytes # 0.8 L Monocytes # Eosinophils # Carbon Dioxide 31 H Anion Gap BUN 29 H BUN/Creatinine Ratio Glucose 133 H Total Bilirubin 1.4 H Influenza Type A (PCR) Detected A 01/16/25 01/16/25 05:12 05:12 MCHC 31.6 L Lymphocytes # 0.61 L Monocytes # 0.05 L Eosinophils # 0 L Carbon Dioxide Anion Gap 12.30 H BUN BUN/Creatinine Ratio 45.00 H Glucose 147 H Total Bilirubin Influenza Type A (PCR) - Diagnostic Findings Chest x-ray: image reviewed Assessment and Plan Plan: Acute influenza A infection. The patient is presenting with symptoms of tracheobronchitis related to influenza A infection. No significant shortness of breath. No hemodynamic instability. 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 twice a day for the next 5 days IV Solu-Medrol IV fluids Russ mariscal [id number] Reevaluated oxygenation with the next 24 hours and the patient should be able to go home once her oxygenation improves Case was discussed with family members Recommend annual vaccination with flu shot Recommend hearing aids Will be glad to follow
[2025-01-17] MEDS ORDERED: IPRATROPIUM-ALBUTEROL 3 ML NEB INHALATION PRN (00:05)
[2025-01-17] MEDS: PANTOPRAZOLE 40 MG TABLET PO SCH (06:30)
[2025-01-17 07:36] VITALS: BP 153/88; RESP 18; TEMP 97.8
[2025-01-17] MEDS: IPRATROPIUM-ALBUTEROL 3 ML NEB INHALATION SCH (09:40)
[2025-01-17 09:54] VITALS: PULSE 71
--- NOTE | 2025-01-17 10:36 | P.DS ---
Providers Date of admission: 01/15/25 20:22 Expected date of discharge: 01/17/25 Attending physician: Marichuy Ramirez MD Consults: 01/15/25 20:01 Consult Physician Urgent Consulting Provider: Kiara Villegas Consult Reason/Comments: hypoxia, influenza a Do you want consulting provider notified?: Yes Primary care physician: Stated None Hospital Course: 89-year-old female with no reported medical history presenting to the ED with shortness of breath. Patient went to urgent care due to nonproductive cough for the past 5 to 6 days. They ultimately found patient oxygen saturation to be 80% on room air. She endorses a mild headache. Denies any sick contacts. Denies any history of asthma or COPD. Denies any tobacco, alcohol, drug history. In the ED she underwent extensive evaluation. T 99.5 F, GA 85, RR 22, BP 129/70, O2 saturation 80% on room air. CXR displaying no acute cardiopulmonary process. Cepheid 4-plex detecting Influenza A detected. Lactic acid 1.2. CBC, CMP significant for bicarb 31, BUN 29, glu 133, T. Bili 1.4. BNP 637. Trop 0.029. EKG NSR. Started on Tamiflu and admitted for further workup and management. 01/16 Patient was seen and examined. Feeling better. 89% on RA. CBC, CMP significant for AG 12.3, BUN/Cr 45, glu 147. 01/17 Patient was seen and examined. Feeling well. Passed home O2 eval today. Wanting to go home. D-Dimer 0.37. Discharge Plan: Prednisone 40 mg PO QD x 4 days. Tamiflu 30 mg PO BID x 6 doses. Albuterol inhaler PRN. Follow up with PCP within 1-[address] Villegas within 1 week of discharge. General: non toxic, no distress, appears at stated age Derm: warm, dry Head: atraumatic, normocephalic, symmetric Mouth: no lip lesion, mucus membranes moist Cardiovascular: S1S2 reg, no murmur Lungs: Decreased BS bilaterally, no rales , no accessory muscle use Ext: no gross muscle atrophy, no edema, no contractures Neuro: no focal neuro deficits Psych: Alert and oriented x 3 Discharge Diagnosis: Acute hypoxic respiratory failure secondary to Flu A Prerenal azotemia with Hyperbilirubinemia This complex discharge took 35 minutes to complete. Patient Condition at Discharge: Stable Plan - Discharge Summary Discharge Rx Participant: Yes New Discharge Prescriptions: New predniSONE [Deltasone] 40 mg PO DAILY #8 tab Pantoprazole [Protonix] 40 mg PO AC-BRKFST #30 tab Albuterol Inhaler [Ventolin Hfa Inhaler] 2 puff INHALATION Q6H PRN #1 each PRN Reason: Shortness Of Breath Or Wheezing Oseltamivir [Tamiflu] 30 mg PO BID #6 cap Acetaminophen Tab [Tylenol] 650 mg PO Q6HR PRN tab PRN Reason: Mild Pain Or Fever > 100.5 Discharge Medication List Acetaminophen Tab [Tylenol] 650 mg PO Q6HR PRN tab 01/17/25 [Rx] Albuterol Inhaler [Ventolin Hfa Inhaler] 2 puff INHALATION Q6H PRN #1 each 01/17/25 [Rx] Oseltamivir [Tamiflu] 30 mg PO BID #6 cap 01/17/25 [Rx] Pantoprazole [Protonix] 40 mg PO AC-BRKFST #30 tab 01/17/25 [Rx] predniSONE [Deltasone] 40 mg PO DAILY #8 tab 01/17/25 [Rx] Follow up Appointment(s)/Referral(s): None,Stated [Primary Care Provider] - 1-2 days Kiara Villegas MD [STAFF PHYSICIAN] - 1 Week Discharge/Stand Alone Forms: Area PCPs Discharge Disposition: HOME SELF-CARE
--- NOTE | 2025-01-17 14:59 | P.PN ---
Subjective Progress Note Date: 01/17/25 This is a pleasant 89-year-old female patient was been having increased cough and congestion for approximately 5 days. She has not received her influenza vaccine for the current year. No reported fever or chills. No significant shortness of breath. No nausea vomiting or diarrhea or abdominal pain. No altered mentation. The patient presented to the emergency department and the patient was found to be hypoxic with a pulse ox of around 80% on room air oxygen. She was placed on oxygen and she is currently on 2 L nasal cannula. She also tested positive for influenza A. Based on that, the patient was hospitalized. The patient is extremely hard of hearing. She does not wear any hearing aids. Information was obtained from family members. No history of any chronic lung disease. No chest pain. No use of home oxygen. She is a lifetime non-smoker. She is hemodynamically stable with a white cell count of 4.8, hemoglobin 13.1 and a platelet count of 254. Sodium is at 143, BUN 27 creati nine of 0.6. Viral screen was positive for influenza A infection. proBNP level was 637. Troponin level was at 0.0 29. Total protein and albumin levels were essentially within normal limits. Calcium level is at 8.8. Lactic acid level is at 1.2. Patient is currently on Tamiflu 30 mg p.o. twice a day. She was started on IV Solu-Medrol. She is on DuoNeb and MRI tubes [id number]. Oxygenation remained stable and the patient continues to desaturate on room air oxygen. Chest x-ray was also reviewed and it shows no acute airspace 0 consolidation. The patient has chronic elevation of left hemidiaphragm with gas-filled bowel under the left hemidiaphragm. Otherwise, no airspace disease or consolidation. No other significant abnormalities noted. 01/17/2025, the patient is doing well. Oxygen is improved. Cough and congestion subsided. No new complaints. Remains hard of hearing. Nevertheless, she denies any specific complaints. No fever. No chills. No altered mentation. No other hemodynamic instability for now. Patient continues to be on Tamiflu. She quickly discharged complete course of Tamiflu on outpatient basis and a course of prednisone taper cannot be transferred here. No other significant events overnight. Family at the bedside Objective - Vital Signs Vital signs: Vital Signs Temp 97.8 F 01/17/25 06:51 Pulse 71 01/17/25 09:53 Resp 18 01/17/25 06:51 BP 153/88 01/17/25 06:51 Pulse Ox 90 L 01/17/25 09:56 FiO2 Intake & Output 01/16/25 01/17/25 01/17/25 18:59 06:59 18:59 Weight 52.39 kg Other: Voiding Method Toilet Toilet Toilet # Voids 3 1 - Exam The patient appeared well nourished and normally developed. Vital signs as documented. BMI is 18.6, currently on room air oxygen Head exam is unremarkable. No scleral icterus or corneal arcus noted. Neck is without jugular venous distension, thyromegaly, or carotid bruits. Carotid upstrokes are brisk bilaterally. Lungs are clear to auscultation and percussion. Scattered rhonchi heard throughout the lung phelps bilaterally Cardiac exam reveals the PMI to be normally sized and situated. Rhythm is regular. First and second heart sounds normal. No murmurs, rubs or gallops. Abdominal exam reveals normal bowel sounds, no masses, no organomegaly and no aortic enlargement. Extremities are nonedematous and both femoral and pedal pulses are normal. Examination of the skin revealed no evidence of significant rashes, suspicious appearing nevi or other concerning lesions. Neurologically, the patient is awake and alert and the patient does not have any focal neurological deficit. Cranial nerves are essentially intact. - Labs CBC & Chem 7: 01/16/25 05:12 01/16/25 05:12 Assessment and Plan Plan: Acute influenza A infection. The patient is presenting with symptoms of tracheobronchitis related to influenza A infection. No significant shortness of breath. No hemodynamic instability. 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 twice a day for the next 5 days Prednisone burst taper, discharge Albuterol as needed Will discharge patient home.
== END 2025-01-17 11:34 | disposition home or self-care (01) | DRG 193 ==
LOC: EC 17:44 → 4SSUR 20:22
PROVIDERS: ADMIT Internal Medicine; ATTEND Internal Medicine
DX: J10.1 Influenza due to other identified influenza virus with other respiratory manifestations (principal); J96.01 Acute respiratory failure with hypoxia; E87.3 Alkalosis; J98.6 Disorders of diaphragm; E80.6 Other disorders of bilirubin metabolism; H91.90 Unspecified hearing loss, unspecified ear; Z79.899 Other long term (current) drug therapy
CPT/HCPCS: 36415; 71046; 80048; 80053; 83605; 83735; 83880; 84484; 85025; 85379; 87636; 93005; 94640; 94760; 96374; 99285